=== PATIENT | male | born 1960 | race Caucasian/White ===

== ENCOUNTER 2016-09-28 05:42 | Day surgery (SDC) | payer BC ==
[2016-09-27 14:55] VITALS: BMI 27.4
[2016-09-28] VITALS (16 sets, daily range): BP systolic 110–140; BP diastolic 53–72; PULSE 83–96; RESP 13–18; Ht 172.7 cm; Wt 81.9 kg
[~2016-09-28] VITALS: Ht 172.7 cm; Wt 81.9 kg
[~2016-09-28 05:42] MED LIST: CEFAZOLIN 1 GM/50 ML (PMX) 50 ML IVPB ONE
[2016-09-28] MEDS ORDERED: BUPIVACAINE 0.5% (SDV) 30 ML INJ ONE (06:58)
[2016-09-28] MEDS ORDERED: POLYMYXIN/BACITRACIN 1L IRRIG ONE (06:58)
[2016-09-28] MEDS ORDERED: INSULIN ASPART [NOVOLOG] 3 ML PEN SC ONE (07:00)
[2016-09-28] MEDS ORDERED: SPIR100T31 PO (07:11)
[2016-09-28] MEDS ORDERED: DILTIAZEM PO (07:11)
[2016-09-28] MEDS ORDERED: LANT3I SC ×2 (07:11)
[2016-09-28] MEDS ORDERED: LYR75 PO (07:11)
[2016-09-28] MEDS ORDERED: SOD CHLORIDE 0.9% 1,000 ML IV SCH (07:30)
[2016-09-28] MEDS ORDERED: LIDOCAINE 2% (MDV) 20 ML INJ ONE (07:48)
[2016-09-28] MEDS ORDERED: FENTAnyl 50 MCG/ML VIAL ONE (07:52)
[2016-09-28] MEDS ORDERED: MIDAZOLAM 1 MG/ML 2 ML INJ ONE (07:52)
[2016-09-28] MEDS ORDERED: LIDOCAINE 2% (MDV) 20 ML INJ INJ ONE (08:20)
[2016-09-28] MEDS ORDERED: BUPIVACAINE 0.5% 30 ML VIAL INJ ONE (08:20)
[2016-09-28] MEDS ORDERED: LIDOCAINE 2% (SDV) 5 ML INJ ONE (08:41)
[2016-09-28] MEDS ORDERED: PROPOFOL 20 ML ONE (08:41)
[2016-09-28] MEDS ORDERED: CEFAZOLIN 1 GM INJ ONE (08:41)
[2016-09-28] MEDS ORDERED: ONDANSETRON 4 MG INJ ONE (08:41)
[2016-09-28] MEDS ORDERED: MEPERIDINE 25 MG INJ IV PRN (09:00)
[2016-09-28] MEDS ORDERED: DIPHENHYDRAMINE 50 MG INJ IV PRN (09:00)
[2016-09-28] MEDS ORDERED: morphine (1 MG/ML) 10ML SYRINGE IV PRN (09:00)
[2016-09-28] MEDS ORDERED: FENTAnyl 50 MCG/ML VIAL IV PRN (09:00)
[2016-09-28] MEDS ORDERED: ONDANSETRON 4 MG INJ IV PRN (09:00)
--- NOTE | 2016-09-28 09:23 | HPN ---
Date/Time of Note Date/Time of Note DATE: 09/28/16 TIME: 09:23 Interval H&P Admission Note Pt. seen H&P reviewed: No system changes SHELBIE JOHNSON DPM September 28, 2016 09:23
[2016-09-28] MEDS ORDERED: HYDROCODONE/APAP (10/325) TAB PO PRN (09:30)
--- NOTE | 2016-09-28 14:26 | RADRPT ---
PROCEDURE: XR Right Foot CLINICAL INDICATION: Postop TECHNIQUE: AP, oblique, and lateral portable radiographs were submitted. COMPARISON: None FINDINGS: Osseous structures: A metallic pin has been placed longitudinally to the phalanges of the third toe. The fourth toe has been amputated at the metatarsal phalangeal joint. There is flattening of the head of the right second metatarsal. Joint spaces: There is pencil in cup deformity to the first metatarsal phalangeal joint. Soft tissues: appear unremarkable. IMPRESSION: 1. A metal pin has been placed longitudinally through the phalanges of the third toe. 2. Previous amputation at the right fourth metatarsal phalangeal joint. 3. Penciling cup deformity at the first metatarsal phalangeal joint. This can be seen in psoriatic arthritis. Physician Vishnu Date Time Electronically viewed and signed by Rajeev Alberts Physician on 09/28/2016 14:25 /
== END 2016-09-28 11:00 | disposition home or self-care (01) ==
LOC: SDS 05:42
PROVIDERS: ATTEND Podiatrist Foot & Ankle Surgery
DX: M20.41 Other hammer toe(s) (acquired), right foot (principal); I73.9 Peripheral vascular disease, unspecified; E11.42 Type 2 diabetes mellitus with diabetic polyneuropathy; J44.9 Chronic obstructive pulmonary disease, unspecified; E66.9 Obesity, unspecified; Z68.27 Body mass index [BMI] 27.0-27.9, adult; E78.5 Hyperlipidemia, unspecified; Z87.891 Personal history of nicotine dependence
CPT/HCPCS: 28285; 73630; 82962; 88304; 88311; C1713; J0690; J1815; J2250; J2405; J3010; Z7512; Z7610

== ENCOUNTER 2017-06-15 10:05 | Day surgery (SDC) | END 2017-06-15 12:41 | disposition home or self-care (01) ==